=== PATIENT | female | born 1985 | race Caucasian/White ===

== ENCOUNTER → 2020-05-14 | Outpatient (CLI) | payer SELFPAY ==
[~2020-05-14] VITALS: Ht 157.5 cm; Wt 59.0 kg
== END ==
LOC: OPSV 08:11
DX: M79.89 Other specified soft tissue disorders (principal)
CPT/HCPCS: 96365; 96367; J0696; J0878

== ENCOUNTER → 2020-05-15 | Outpatient (CLI) | payer SELFPAY ==
[~2020-05-15] VITALS: Ht 157.5 cm; Wt 59.0 kg
== END ==
LOC: OPSV 07:42
DX: R22.30 Localized swelling, mass and lump, unspecified upper limb (principal)
CPT/HCPCS: 96365; 96367; J0696; J0878

== ENCOUNTER → 2020-05-17 | Outpatient (CLI) | payer SELFPAY ==
[~2020-05-17] VITALS: Ht 157.5 cm; Wt 59.0 kg
== END ==
LOC: OPSV 10:00
DX: M79.89 Other specified soft tissue disorders (principal)
CPT/HCPCS: 96365; 96367; J0696; J0878

== ENCOUNTER → 2020-05-18 | Outpatient (CLI) | payer SELFPAY ==
[~2020-05-18] VITALS: Ht 157.5 cm; Wt 59.0 kg
== END ==
LOC: OPSV 09:14
DX: M79.89 Other specified soft tissue disorders (principal)
CPT/HCPCS: 96365; 96367; J0696; J0878

== ENCOUNTER → 2020-05-19 | Outpatient (CLI) | payer SELFPAY | LOC: OPSV 09:12 | DX: M79.89 Other specified soft tissue disorders (principal) ==

== ENCOUNTER → 2020-05-20 | Outpatient (CLI) | payer SELFPAY ==
[~2020-05-20] VITALS: Ht 157.5 cm; Wt 59.0 kg
[2020-05-20 11:01] LABS: HEMOGLOBIN 13.3 gm/dl (12.3-15.3); RED BLOOD COUNT 4.39 M/UL (4.00-5.10)
[2020-05-20 11:09] LABS: BUN/CREATININE RATIO 22 (0-10)
== END ==
LOC: OPSV 09:39
PROVIDERS: Nurse Practitioner
DX: R22.30 Localized swelling, mass and lump, unspecified upper limb (principal)
CPT/HCPCS: 36415; 80048; 82550; 85027; 85652; 86140; 96365; 96367; J0696; J0878

== ENCOUNTER → 2020-05-21 | Outpatient (CLI) | payer SELFPAY ==
[~2020-05-21] VITALS: Ht 157.5 cm; Wt 59.0 kg
== END ==
LOC: OPSV 09:00
DX: R22.30 Localized swelling, mass and lump, unspecified upper limb (principal)
CPT/HCPCS: 96365; 96367; J0878

== ENCOUNTER → 2020-05-23 | Outpatient (CLI) | payer SELFPAY ==
[~2020-05-23] VITALS: Ht 157.5 cm; Wt 59.0 kg
== END ==
LOC: OPSV 09:15
DX: M79.89 Other specified soft tissue disorders (principal)
CPT/HCPCS: 96365; 96367; J0696; J0878